=== PATIENT | male | born 1960 | race Hispanic/Latino ===

== ENCOUNTER 2017-06-04 11:18 | Inpatient (IN) | payer OTHER ==
[~2017-06-04] VITALS: Ht 180.3 cm; Wt 117.5 kg
[2017-06-04] MEDS ORDERED: SODIUM CHLORIDE 0.9% 1000ML 1,000 ML IV ONE (11:45)
[2017-06-04] MEDS ORDERED: ONDANSETRON HCL INJ 2 MG/ML VIAL IV PRN (12:30)
[2017-06-04] MEDS ORDERED: MORPHINE SULFATE 2 MG/ML SYR IV PRN (12:30)
[2017-06-04] MEDS ORDERED: CEFTRIAXONE SOD 1 GM VIAL IV SCH (12:30)
[2017-06-04] MEDS ORDERED: ONDANSETRON HCL INJ 2 MG/ML VIAL IV STA (12:31)
[2017-06-04] MEDS ORDERED: MORPHINE SULFATE 4 MG/ML SYR IV STA (12:31)
[2017-06-04 13:38] LABS: BASOPHILS # (AUTO) 0.1 (0.0-0.1); BASOPHILS % 0.4 % (0.0-1.0); EOSINOPHILS % 0.1 % (0.0-6.0); HEMATOCRIT 45.7 % (38.2-49.6); HEMOGLOBIN 15.1 g/dL (14.0-18.0); LYMPHOCYTES % 6.3 % (18.0-39.1); MEAN CORPUSCULAR HEMOGLOBIN 27.6 pg (28-32); MEAN CORPUSCULAR VOLUME 83.5 fL (81-99); MONOCYTES # (AUTO) 2.7 (0.2-0.8); MONOCYTES % 8.9 % (4.4-11.3); NEUTROPHILS # (AUTO) 25.8 (2.1-6.9); NEUTROPHILS % 83.5 % (38.7-80.0); PLATELET COUNT 335 x10e3/uL (140-360); RED BLOOD COUNT 5.47 x10e6/uL (4.3-5.7); RED CELL DISTRIBUTION WIDTH 14.6 % (11.7-14.4)
[2017-06-04 13:49] LABS: INR 1.3; PARTIAL THROMBOPLASTIN TIME 28.6 seconds (23.8-35.5); PROTHROMBIN TIME 15.2 seconds (11.9-14.5)
[2017-06-04 13:56] LABS: ALBUMIN/GLOBULIN RATIO 0.6 (0.8-2.0); ANION GAP 14.4 mmol/L (8-16); CALCIUM 9.3 mg/dL (8.4-10.2); CREATININE, SERUM 1.24 mg/dL (0.72-1.25); POTASSIUM 3.4 mmol/L (3.5-5.1)
[2017-06-04 14:03] LABS: CREATINE KINASE MB 1.8 ng/mL (0-5.0)
[2017-06-04] MEDS ORDERED: SODIUM CHLORIDE 0.9% 1000ML 1,000 ML IV STA (14:11)
--- NOTE | 2017-06-04 14:19 | Diagnostic Imaging Report ---
PROCEDURE:KNEE LEFT THREE VIEWS TECHNIQUE:AP, lateral and oblique views left knee INDICATION:Left knee pain; status infection COMPARISON:None. FINDINGS: The left knee and image regional skeleton are intact and in anatomic alignment. No erosion or periosteal reaction. No effusion. Imaged regional soft tissues are grossly unremarkable. No foreign bodies. CONCLUSION: No acute abnormality. Dictated by: Hung Franks M.D. on 06/04/2017 at 14:20 Electronically approved by: Hung Franks M.D. on 06/04/2017 at 14:20
--- NOTE | 2017-06-04 14:20 | Diagnostic Imaging Report ---
PROCEDURE:CHEST SINGLE (PORTABLE) TECHNIQUE:AP view chest INDICATION:Infection COMPARISON:None. FINDINGS: Lungs are clear and symmetrically inflated. No pleural effusions. Normal heart size, mediastinal contour, and pulmonary vasculature for technique. Intact skeleton. CONCLUSION: No acute abnormality. Dictated by: Hung Franks M.D. on 06/04/2017 at 14:21 Electronically approved by: Hung Franks M.D. on 06/04/2017 at 14:21
[2017-06-04] MEDS ORDERED: ACETAMINOPHEN 1000 MG/100 ML IV STA (14:40)
[2017-06-04] MEDS ORDERED: ASPIRIN 81 MG CHEW TAB PO ONE (14:45)
[2017-06-04] MEDS ORDERED: SODIUM CHLORIDE 0.9% 500ML 500 ML ONE (14:56)
[2017-06-04] MEDS ORDERED: ACETAMINOPHEN 1000 MG/100 ML 100 ML IV ONE (14:58)
--- OUTSIDE RECORDS SUMMARY | 2017-06-04 15:07 | XMS REPORT ---
Author Author [facility] Address Unknown Phone Unavailable Care Team Providers Care Canary Breeder Name Role Phone ALBIN PAZ Unavailable Unavailable Problems This patient has no known problems. Allergies, Adverse Reactions, Alerts This patient has no known allergies or adverse reactions. Medications This patient has no known medications. Results Test Description Test Time Test Comments Text Results Atomic Results Result Comments KNEE LEFT THREE VIEWS [place] [address] Patient Name: STARR WAGNER MR #: [id number] : 1960 Age/Sex: 56/M Req #: [id number] Adm Physician: Ordered by: PINA ZUNIGA MANUFACTURING MECHANIC Report #: [id number] Location: ER Room/Bed: Procedure: [id number] DX/KNEE LEFT THREE VIEWS Exam Date: Exam Time: REPORT STATUS: Signed PROCEDURE: KNEE LEFT THREE VIEWS TECHNIQUE: AP, lateral and oblique views left knee INDICATION: Left knee pain; status infection COMPARISON: None. FINDINGS: The left knee and image regional skeleton are intact and in anatomic alignment. No erosion or periosteal reaction. No effusion. Imaged regional soft tissues are grossly unremarkable. No foreign bodies. CONCLUSION: No acute abnormality. Dictated by: Birdie Franks M.D. on 06/04/2017 at 14:20 Electronically approved by: Birdie Franks M.D. on 2017 at 14:20 Dictated By: BIRDIE FRANKS MD 19 Transcribed By: SUSIE on 1419 COPY TO: PINA ZUNIGA NP CHEST SINGLE (PORTABLE) [place] [address] Patient Name: STARR WAGNER MR #: [id number] : 1960 Age/Sex: 56/M Req #: [id number] Adm Physician: Ordered by: PINA ZUNIGA NP Report #: [id number] Location: ER Room/Bed: Procedure: [id number] DX/CHEST SINGLE (PORTABLE) Exam Date: Exam Time: REPORT STATUS: Signed PROCEDURE: CHEST SINGLE ( PORTABLE) TECHNIQUE: AP view chest INDICATION: Infection COMPARISON: None. FINDINGS: Lungs are clear and symmetrically inflated. No pleural effusions. Normal heart size, mediastinal contour, and pulmonary vasculature for technique. Intact skeleton. CONCLUSION: No acute abnormality. Dictated by: Birdie Franks M.D. on 06/04/2017 at 14:21 Electronically approved by: Birdie Franks M.D. on 2017 at 14:21 Dictated By: BIRDIE FRANKS MD 20 Transcribed By: SUSIE on 142 COPY TO: PINA ZUNIGA NP
[2017-06-04] MEDS: SODIUM CHLORIDE 0.9% 1000ML 1,000 ML IV SCH (15:18)
[2017-06-04] MEDS: VANCOMYCIN 1GM/NS 250 ML 250 ML IV SCH ×2 (15:18→15:19)
[2017-06-04 16:46] LABS: CLARITY,URINE SL CLOUDY (CLEAR); COLOR,URINE STRAW (YELLOW)
[2017-06-04 16:47] LABS: BILIRUBIN,URINE 1+ (NEGATIVE); KETONES,URINE NEGATIVE (NEGATIVE); LEUKOCYTE ESTERASE ,URINE NEGATIVE (NEGATIVE); NITRITE,URINE NEGATIVE (NEGATIVE); PROTEIN,URINE DIPSTICK TRACE (NEGATIVE); URINE UROBILINOGEN 8 mg/dL (0.2 - 1)
[2017-06-04 16:52] LABS: BACTERIA,URINE RARE /HPF; EPITHELIAL CELLS,URINE FEW /LPF
[2017-06-04 16:58] LABS: LYMPHOCYTES % (MANUAL) 8 % (19-48); MONOCYTES % (MANUAL) 8 % (3.4-9.0); NEUTROPHILS % (MANUAL) 82 % (40-74); PLATELET ESTIMATE ADEQUATE; PLATELET MORPHOLOGY COMMENT NORMAL; RBC MORPHOLOGY COMMENT NORMAL
--- NOTE | 2017-06-04 17:06 | Diagnostic Imaging Report ---
PROCEDURE: A single AP view of the chest. COMPARISON: Patients [facility], , CHEST SINGLE (PORTABLE), 06/04/2017, 14:36. INDICATIONS: PICC PLACEMENT FINDINGS: Lines/tubes: Left upper extremity PICC with distal tip projected on the mid SVC. Lungs: Left basilar linear atelectasis versus scarring. There is no evidence of pneumonia or pulmonary edema. Pleura: There is no pleural effusion or pneumothorax. Heart and mediastinum: The heart and the mediastinum are unremarkable. Bones: No acute bony abnormality. IMPRESSION: 1. Left upper extremity PICC with distal tip projected on the mid SVC. Stephany Canchola M.D. Dictated by: Stephany Canchola M.D. on 06/04/2017 at 17:07 Electronically approved by: Stephany Canchola M.D. on 06/04/2017 at 17:07
--- NOTE | 2017-06-04 18:34 | Diagnostic Imaging Report ---
EXAM: CT Chest WITH contrast 06/04/2017 2:51 PM INDICATION: Pulmonary embolism. Red swollen legs. COMPARISON: None. TECHNIQUE: Chest was scanned utilizing a multidetector helical scanner from the lung apex through the level of the adrenal glands without administration of IV contrast. Coronal and sagittal reformations were obtained. Routine protocol was performed. IV CONTRAST: 100 mL of Isovue-370. RADIATION DOSE: Total DLP: 671.19mGy*cm Estimated effective dose: (DLP x 0.014 x size factor) mSv COMPLICATIONS: None FINDINGS: LINES/ TUBES: Left upper extremity PICC with distal tip in the high SVC. LUNGS AND AIRWAYS: There are small filling defects within bilateral segmental pulmonary veins, however, significantly defect is noted in pulmonary arteries to the resolved segmental level bilaterally. Bibasilar subsegmental atelectasis. Lingular subsegmental atelectasis. Airways are normal. PLEURA: No pleural effusion or pneumothorax. HEART AND MEDIASTINUM: The thyroid gland is normal. Small lymph nodes scattered throughout the mediastinum, the largest lateral to the aortic arch measuring 8.7 mm in short axis on image 32 series 2. No hilar or axillary lymphadenopathy. The heart is normal in size.. There is no pericardial effusion. Mild mediastinal lipomatosis. UPPER ABDOMEN: Limited non-contrast views of the upper abdomen show diffuse low attenuation of the hepatic parenchyma consistent with steatosis. The adrenal glands are normal. BONES: Spondylosis of the mid thoracic spine. No acute osseous abnormality. SOFT TISSUES: Unremarkable. IMPRESSION: No evidence of pulmonary arterial emboli to the resolved segmental level. Signed by: Dr. Stephany Canchola M.D. on 06/04/2017 6:30 PM
[2017-06-04 18:43] LABS: CHOL/HDL RATIO 5.6 (3.9-4.7)
[2017-06-04] MEDS ORDERED: LOSARTAN POTASS25 MG PO (18:49)
[2017-06-04] MEDS: ENOXAPARIN SODIUM INJ 100 MG/ML SYR SC SCH (18:50)
[2017-06-04 19:08] LABS: CREATINE KINASE MB 0.9 ng/mL (0-5.0)
--- NOTE | 2017-06-04 19:22 | Consultation ---
DATE OF CONSULTATION: June 04, 2017 CARDIOLOGY CONSULTATION REQUESTING PHYSICIAN: Dr. Prashanth Mcclain. REASON FOR CONSULTATION: Elevated troponin. HISTORY OF PRESENT ILLNESS: This is a 56-year-old man with history of hypertension, who presents with complaints of left leg pain and swelling. The patient reports he had been feeling weak secondary to the flu. On Sunday he bumped his left leg against something and noted increasing redness and swelling. Since that time, he saw his primary care provider, Dr. Moseley, today and was sent to the ER for further care. He denies any chest pain, orthopnea, PND, palpitations, lightheadedness or syncope. However, he does endorse dyspnea on exertion for 4 days. REVIEW OF SYSTEMS: Negative except as per HPI. PAST MEDICAL HISTORY: Hypertension. PAST SURGICAL HISTORY: None. ALLERGIES: NO KNOWN DRUG ALLERGIES. MEDICATIONS: Please see EMR. SOCIAL HISTORY: Denies tobacco, alcohol or drugs. He works as an programmer engineering and scientific. FAMILY HISTORY: Noncontributory. PHYSICAL EXAMINATION VITAL SIGNS: Temperature 98.9 degrees, pulse of 95, respiratory rate 16, blood pressure 118/73, oxygen saturation 100% on 2 liters nasal cannula. GENERAL: A well-developed, well-nourished, obese man in no acute distress. HEENT: Normocephalic, atraumatic. Pupils equal, no scleral icterus. NECK: Supple. No thyromegaly or cervical lymphadenopathy, no carotid bruits. LUNGS: Clear to auscultation bilaterally. No wheezes or crackles. CARDIOVASCULAR: Normal rate, regular rhythm. No murmur. Normal S1 and S2. ABDOMEN: Soft, nontender. EXTREMITIES: Right lower extremity no edema. Left lower extremity markedly erythematous and swollen up to the lower thigh. NEURO: Nonfocal exam. LABS: WBC 30.87, hemoglobin 15.1, platelets 335. Sodium 136, potassium 3.4, chloride 99, CO2 26, BUN 17, creatinine 1.24. Lactic acid 26.9. Troponin 1.246. INR 1.3. CHEST X-RAY: No acute abnormality. EKG: Sinus tachycardia, otherwise normal EKG. IMPRESSION 1. Elevated troponin. 2. Left lower extremity cellulitis. 3. Dyspnea on exertion. 4. Hypertension. RECOMMENDATIONS: Trend cardiac enzymes. Echocardiogram has been done as well as venous Doppler. We will review the images. IV antibiotics per primary service. Blood cultures are pending. D-dimer elevated to 1.67. CT of the chest was performed with pending read as well. Start aspirin. Check fasting lipid panel. Lovenox 1 mg/kg subcutaneous q.12 h. Thank you for this consult. We will continue to follow. Job#: [id number] EV MTDPoncho
[2017-06-04] MEDS ORDERED: IOPAMIDOL 370 MG/ML 200 ML INFUS..BTL INJ ONE (22:33)
[2017-06-04] MEDS ORDERED: SODIUM CHLORIDE 0.9% 50ML 50 ML ONE (22:33)
[2017-06-04 22:45] VITALS: BP 131/85
[2017-06-04 23:04] LABS: CREATINE KINASE MB 0.5 ng/mL (0-5.0)
[2017-06-04 23:47] VITALS: BP 131/85
[2017-06-05] MEDS: SODIUM CHLORIDE 0.9% 1000ML 1,000 ML IV SCH ×2 (00:24→09:32)
[2017-06-05] MEDS: CEFTRIAXONE SOD 1 GM VIAL IV SCH ×2 (02:37→14:45)
[2017-06-05] MEDS: VANCOMYCIN 1GM/NS 250 ML 250 ML IV SCH ×2 (03:33→15:30)
[2017-06-05 04:00] VITALS: BP 113/61
[2017-06-05] MEDS: ENOXAPARIN SODIUM INJ 100 MG/ML SYR SC SCH ×2 (06:20→18:16)
[2017-06-05 06:21] LABS: BASOPHILS # (AUTO) 0.1 (0.0-0.1); BASOPHILS % 0.4 % (0.0-1.0); EOSINOPHILS % 0.1 % (0.0-6.0); HEMATOCRIT 36.5 % (38.2-49.6); HEMOGLOBIN 12.5 g/dL (14.0-18.0); LYMPHOCYTES # (AUTO) 1.7 (1.0-3.2); MEAN CORPUSCULAR HEMOGLOBIN 28.3 pg (28-32); MEAN CORPUSCULAR HGB CONC 34.2 g/dL (31-35); MEAN CORPUSCULAR VOLUME 82.6 fL (81-99); MONOCYTES # (AUTO) 2.3 (0.2-0.8); MONOCYTES % 8.2 % (4.4-11.3); NEUTROPHILS # (AUTO) 23.9 (2.1-6.9); NEUTROPHILS % 84.3 % (38.7-80.0); PLATELET COUNT 280 x10e3/uL (140-360); RED BLOOD COUNT 4.42 x10e6/uL (4.3-5.7); RED CELL DISTRIBUTION WIDTH 14.5 % (11.7-14.4)
[2017-06-05 06:51] LABS: ANION GAP 10.5 mmol/L (8-16); BLOOD UREA NITROGEN 12 mg/dL (7-26); BUN/CREATININE RATIO 13 (6-25); CALCIUM 8.3 mg/dL (8.4-10.2); CARBON DIOXIDE 24 mmol/L (22-29); CHLORIDE 104 mmol/L (98-107); CREATININE, SERUM 0.94 mg/dL (0.72-1.25); EST GLOMERULAR FILTRATION RATE > 60 ML/MIN (60-); GLUCOSE 102 mg/dL (74-118); POTASSIUM 3.5 mmol/L (3.5-5.1); SODIUM 135 mmol/L (136-145)
[2017-06-05 08:00] VITALS: BP 103/64
[2017-06-05] MEDS: ACETAMINOPHEN 325 MG TAB PO PRN (08:00)
[2017-06-05 08:27] LABS: BAND NEUTROPHILS % (MANUAL) 3 %; EOSINOPHILS % (MANUAL) 1 % (0-7); LYMPHOCYTES % (MANUAL) 5 % (19-48); MONOCYTES % (MANUAL) 7 % (3.4-9.0); NEUTROPHILS % (MANUAL) 77 % (40-74)
[2017-06-05 08:28] LABS: ANISOCYTOSIS SLIGHT; HYPOCHROMASIA SLIGHT; PLATELET ESTIMATE ADEQUATE; PLATELET MORPHOLOGY COMMENT FEW LARGE; RBC MORPHOLOGY COMMENT NORMAL
[2017-06-05] MEDS ORDERED: LOSARTAN POTASSIUM 25 MG TAB PO SCH (09:00)
[2017-06-05] MEDS: ASPIRIN 81 MG ENTERIC COATED PO SCH (09:00)
[2017-06-05] MEDS ORDERED: PIPER-TAZ 3.375 GM 50 ML IV SCH (09:15)
--- NOTE | 2017-06-05 10:02 | History and Physical ---
PCP: Dr. Ramirez Moseley ELECTRICAL DESIGNER DRAFTER: Dr. Israel CHIEF COMPLAINT: Left lower extremity cellulitis from the left foot to the knee area. HISTORY: A 56-year-old male with chronic skin disease, psoriasis on the left foot interior surface. The patient recently had a upper respiratory infection. He felt better, but then on Sunday he developed some left lower extremity redness and is traveling all the way up to the knee area. The patient with left lower extremity pain. The patient subsequently admitted through the emergency room. He had a fever of 101. The patient has significant pain and left lower extremity redness of the knee area. The patient is on antibiotic, vancomycin. He is also on Rocephin as well. The patient is otherwise stable at this time. PAST MEDICAL HISTORY: Hypertension. PAST SURGICAL HISTORY: Noncontributory. SOCIAL HISTORY: The patient does not smoke or use alcohol. No regular drugs. ALLERGIES: NO KNOWN ALLERGIES. HOME MEDICATIONS: Losartan. REVIEW OF SYSTEMS: Left lower extremity pain, increasing redness and swelling. PHYSICAL EXAMINATION VITAL SIGNS: Temperature is 101, blood pressure 103/64, pulse rate is 98, respirations 18. GENERAL: The patient is not in acute distress. He is awake. HEENT: Normocephalic, atraumatic and anicteric. NECK: Supple grossly. PULMONARY: Diminished breath sounds without any wheezing or rales. CARDIOVASCULAR: S1 and S2. Slight tachycardia. ABDOMEN: Soft. Positive bowel sounds. Grossly nontender. No distention. EXTREMITIES: Positive for left lower extremity cellulitis. NEUROLOGICAL: There is no focal deficit. LABORATORY: WBC is 30.8, hemoglobin 15, hematocrit 35, and platelets are 335,000. Chemistry: Sodium is 135, potassium 3.5, chloride 104, bicarb 24, BUN 12, creatinine 0.9, and glucose is 102. Troponin I is 0.9. IMPRESSION 1. Sepsis with early shock: The patient has fever, leukocytosis and low blood pressure. 2. Left lower extremity cellulitis and infection from the lower extremity foot to the knee area. 3. Fever as mentioned. 4. Possible troponin I could be secondary to distress. PLAN: IV fluid to help blood pressure. Antibiotics. Consultation with Dr. Israel and Dr. Mariano Machado. Continue with aggressive antibiotic treatment. Will discontinue the Rocephin and add on Zosyn. The patient will be monitored on a close basis. Job#: [id number] BENJAMIN
[2017-06-05 11:52] VITALS: BP 109/58
[2017-06-05 16:00] VITALS: BP 115/66
--- NOTE | 2017-06-05 16:28 | Consultation ---
DATE OF CONSULTATION: INFECTIOUS DISEASE CONSULTATION REASON FOR CONSULTATION: Cellulitis of the leg. HISTORY OF PRESENT ILLNESS: This is a 56-year-old male who has history of hypertension, history of psoriasis/eczema. The patient comes in with redness and swelling of his left leg. The patient apparently had been sick for a week. He took some oral antibiotic. Originally it was felt he had the flu, but then a few days later he started to have redness and swelling in his leg. He was given oral antibiotic without any improvement. The patient, because of the redness and swelling in his leg, was sent here, where he was admitted. PAST MEDICAL HISTORY: Hypertension, obesity, psoriasis/eczema. PAST SURGICAL HISTORY: Denies. ALLERGIES: NKA. SOCIAL HISTORY: He denies smoking, drug abuse, alcohol abuse. FAMILY HISTORY: Otherwise hypertension. REVIEW OF SYSTEMS GENERALLY: He is just feeling fair. HEENT: There is no headache, visual changes, hearing changes. GI: There is no nausea, no vomiting, no diarrhea. SKIN: He has a severe rash with itching. JOINTS: Negative. PSYCHIATRIC: Negative. NEUROLOGIC: Negative. MUSCULOSKELETAL: Negative otherwise. On the review of systems, besides the pain in the leg and the redness and swelling, he denies any. HOME MEDICATION: Losartan. His laboratory data reviewed. On admission his white count is 30,000, hemoglobin 15.1, hematocrit 45, his platelet is 335. His sodium 135, potassium 3.5, creatinine of 0.94. Patient was started on ceftriaxone and vancomycin. Patient had a CT of the chest, showed no evidence of acute disease. PHYSICAL EXAMINATION GENERAL: He is currently alert, oriented, does not seem to be in acute distress. VITAL SIGNS: Stable. Currently afebrile. HEENT: He does not appear icteric. NECK: Supple. CHEST: Clear. HEART: S1 and S2. No S3 or S4, no murmur. ABDOMEN: Soft. EXTREMITIES: The leg: There is erythema, there is edema, but there is no bullous formation. There is no black discoloration. IMPRESSION: Cellulitis of the leg, severe. I am concerned about this high white count. It is certainly concerning. Will keep him on current choice of antibiotic. Recheck CBC, recheck chem panel. Blood culture is negative so far. Will reassess in the morning. Will follow with you. Job#: [id number] EV
--- NOTE | 2017-06-05 19:20 | Progress Note ---
DATE: June 05, 2017 CARDIOLOGY PROGRESS NOTE SUBJECTIVE: The patient denies chest pain or shortness of breath. OBJECTIVE VITAL SIGNS: Temperature 96.7 degrees, pulse 95, respiratory rate 20, blood pressure 109/58, oxygen saturation 100% on 3 L nasal cannula. GENERAL: Obese gentleman, in no acute distress. LUNGS: Clear to auscultation bilaterally. No wheezes or crackles. CARDIOVASCULAR: Normal rate, regular rhythm. No murmur. Normal S1, S2. ABDOMEN: Soft, nontender. EXTREMITIES: Right lower extremity without edema. Left lower extremity with swelling and erythema although improved from prior. CARDIAC MEDICATIONS 1. Aspirin 81 mg p.o. daily. 2. Enoxaparin 100 mg subcutaneous q.12 h. LABS: WBC 28.3, hemoglobin 12.5, hematocrit 36.5, platelets 280,000. Sodium 135, potassium 3.5, chloride 104, CO2 24, BUN 12, creatinine 0.94, troponin 0.778. Triglycerides 181, cholesterol 125, LDL 83, HDL 26. IMPRESSION 1. Elevated troponin. 2. Left lower extremity cellulitis. 3. Dyspnea on exertion. 4. Hypertension. RECOMMENDATIONS: Cardiac enzymes are down trending. Continue aspirin and Lovenox. There was no evidence of vein thrombosis in the visualized vessels on left lower extremity venous Doppler. Echocardiogram demonstrated normal systolic function. Patient will need ischemic evaluation once his acute illness resolves. IV antibiotics per infectious disease. Blood cultures are pending. CT chest without evidence of PE. Thank you for this consult. We will continue to follow. Job#: [id number] Delivered
[2017-06-05 21:43] VITALS: BP 111/73
[2017-06-06 01:36] VITALS: BP 96/63
[2017-06-06] MEDS: SODIUM CHLORIDE 0.9% 1000ML 1,000 ML IV SCH ×3 (02:13→18:30)
[2017-06-06] MEDS: CEFTRIAXONE SOD 1 GM VIAL IV SCH ×2 (02:13→14:59)
[2017-06-06] MEDS: VANCOMYCIN 1GM/NS 250 ML 250 ML IV SCH (03:26)
[2017-06-06 06:02] VITALS: BP 124/83
[2017-06-06] MEDS: ENOXAPARIN SODIUM INJ 100 MG/ML SYR SC SCH ×2 (06:17→18:30)
[2017-06-06 06:46] LABS: BASOPHILS # (AUTO) 0.1 (0.0-0.1); BASOPHILS % 0.4 % (0.0-1.0); EOSINOPHILS # (AUTO) 0.2 (0.0-0.4); EOSINOPHILS % 0.6 % (0.0-6.0); HEMATOCRIT 37.2 % (38.2-49.6); HEMOGLOBIN 12.7 g/dL (14.0-18.0); LYMPHOCYTES # (AUTO) 2.1 (1.0-3.2); LYMPHOCYTES % 7.9 % (18.0-39.1); MEAN CORPUSCULAR HEMOGLOBIN 28.1 pg (28-32); MEAN CORPUSCULAR HGB CONC 34.1 g/dL (31-35); MEAN CORPUSCULAR VOLUME 82.3 fL (81-99); MONOCYTES % 7.7 % (4.4-11.3); NEUTROPHILS # (AUTO) 21.3 (2.1-6.9); NEUTROPHILS % 80.5 % (38.7-80.0); PLATELET COUNT 347 x10e3/uL (140-360); RED BLOOD COUNT 4.52 x10e6/uL (4.3-5.7); RED CELL DISTRIBUTION WIDTH 14.4 % (11.7-14.4)
[2017-06-06 07:09] LABS: ANION GAP 11.4 mmol/L (8-16); BLOOD UREA NITROGEN 12 mg/dL (7-26); BUN/CREATININE RATIO 14 (6-25); CALCIUM 8.3 mg/dL (8.4-10.2); CARBON DIOXIDE 22 mmol/L (22-29); CHLORIDE 105 mmol/L (98-107); CREATININE, SERUM 0.83 mg/dL (0.72-1.25); EST GLOMERULAR FILTRATION RATE > 60 ML/MIN (60-); GLUCOSE 94 mg/dL (74-118); POTASSIUM 3.4 mmol/L (3.5-5.1); SODIUM 135 mmol/L (136-145)
[2017-06-06 08:00] VITALS: BP 128/67
[2017-06-06] MEDS: ASPIRIN 81 MG ENTERIC COATED PO SCH (08:00)
[2017-06-06 08:54] LABS: ANISOCYTOSIS SLIGHT; HYPOCHROMASIA SLIGHT; LYMPHOCYTES % (MANUAL) 8 % (19-48); METAMYELOCYTES % (MANUAL) 1 % (0-0); MONOCYTES % (MANUAL) 6 % (3.4-9.0); NEUTROPHILS % (MANUAL) 84 % (40-74); PROMYELOCYTES % (MANUAL) 1 % (0-0); RBC MORPHOLOGY COMMENT NORMAL
[2017-06-06 08:55] LABS: PLATELET ESTIMATE ADEQUATE; PLATELET MORPHOLOGY COMMENT NORMAL
[2017-06-06] MEDS ORDERED: VANCOMYCIN HCL 1.25 GM in SODIUM CHLORIDE 0.9% 250ML 250 ML IV SCH (11:15)
[2017-06-06] MEDS: VANCOMYCIN HCL 1.25 GM in SODIUM CHLORIDE 0.9% 250ML 300 ML IV SCH ×2 (12:13→23:30)
[2017-06-06] MEDS ORDERED: VANCOMYCIN 1GM/NS 250 ML 250 ML IV SCH (13:00)
[2017-06-06] MEDS: CLINDAMYCIN 600MG/D5W 50ML 50 ML IV SCH ×2 (14:59→22:00)
[2017-06-06] MEDS ORDERED: CELECOXIB 100 MG CAP PO PRN (15:00)
[2017-06-06] MEDS ORDERED: KETOROLAC TROMETHAMINE 30 MG/ML VIAL IV PRN (15:00)
[2017-06-06 16:00] VITALS: BP 125/58
--- NOTE | 2017-06-06 18:05 | Progress Note ---
DATE: June 06, 2017 CARDIOLOGY PROGRESS NOTE SUBJECTIVE: Patient denies chest pain or shortness of breath. His main complaint is of back pain today. OBJECTIVE VITAL SIGNS: Temperature 98.6 degrees, pulse 88, respiratory rate 19, blood pressure 126/67, oxygen saturation 98% on room air. GENERAL: Obese gentleman in no acute distress. LUNGS: Clear to auscultation bilaterally. No wheezes or crackles. CARDIOVASCULAR: Normal rate, regular rhythm. No murmur. Normal S1 and S2. ABDOMEN: Soft, nontender. EXTREMITIES: Right lower extremity without edema. Left lower extremity is markedly swollen with worsened erythema. CARDIAC MEDICATIONS 1. Aspirin 81 mg p.o. daily. 2. Lovenox 100 mg subcutaneous q.12 h. LABS: WBC 26.45, hemoglobin 12.7, hematocrit 37.2, platelets 347. Sodium 135, potassium 3.4, chloride 105, CO2 22, BUN 12, creatinine 0.83. Blood cultures no growth at 48 hours. TELEMETRY: Normal sinus rhythm. IMPRESSION 1. Elevated troponin. 2. Left lower extremity cellulitis. 3. Dyspnea on exertion. 4. Hypertension. RECOMMENDATIONS: Continue current cardiac medications. IV antibiotics per Infectious Disease. Blood cultures have not demonstrated growth to date. Patient's elevated troponin is not consistent with [id number] myocardial infarction, and echocardiogram demonstrated normal LV systolic function. However, he will need ischemic evaluation once his acute illness resolves. Continue telemetry. Thank you for this consult. We will continue to follow. Job#: [id number] ENID
[2017-06-06 20:00] VITALS: BP 120/81
[2017-06-07] VITALS: BP 121/76
[2017-06-07] MEDS: VANCOMYCIN HCL 1.25 GM in SODIUM CHLORIDE 0.9% 250ML 300 ML IV SCH ×3 (01:05→23:45)
[2017-06-07] MEDS: CEFTRIAXONE SOD 1 GM VIAL IV SCH ×2 (02:55→14:45)
[2017-06-07 04:00] VITALS: BP 129/70
[2017-06-07] MEDS: SODIUM CHLORIDE 0.9% 1000ML 1,000 ML IV SCH ×3 (04:33→22:21)
[2017-06-07] MEDS: CLINDAMYCIN 600MG/D5W 50ML 50 ML IV SCH ×4 (05:58→22:21)
[2017-06-07] MEDS: ENOXAPARIN SODIUM INJ 100 MG/ML SYR SC SCH (06:06)
[2017-06-07 08:00] VITALS: BP 140/80
[2017-06-07] MEDS: ASPIRIN 81 MG ENTERIC COATED PO SCH (08:30)
[2017-06-07 12:00] VITALS: BP 134/80
--- NOTE | 2017-06-07 12:18 | Progress Note ---
DATE: June 07, 2017 CARDIOLOGY PROGRESS NOTE SUBJECTIVE: Patient denies chest pain or shortness of breath. OBJECTIVE VITAL SIGNS: Temperature 98.2 degrees, pulse 81, respiratory rate 18, blood pressure 140/80, oxygen saturation 95% on room air. GENERAL: Awake, alert, in no acute distress. LUNGS: Clear to auscultation bilaterally. No wheezes or crackles. CARDIOVASCULAR: Normal rate, regular rhythm. No murmur. Normal S1 and S2. ABDOMEN: Soft, nontender. EXTREMITIES: Left lower extremity remains swollen with erythema, although this is better. There appears to be a fluid collection forming on the left anterior aspect. CARDIAC MEDICATIONS 1. Aspirin 81 mg p.o. daily. 2. Enoxaparin 100 mg subcutaneous q.12 h. LABS: Pending. TELEMETRY: Normal sinus rhythm. IMPRESSION 1. Elevated troponin. 2. Left lower extremity cellulitis. 3. Dyspnea on exertion. 4. Hypertension. RECOMMENDATIONS: Continue current cardiac medications. IV antibiotics per infectious disease. Blood cultures are without growth to date. Patient's elevated troponin is not consistent with [id number] myocardial infarction, and echocardiogram demonstrated normal LV systolic function. He will need ischemic evaluation once his acute illness resolves. Continue telemetry. Thank you for this consult. We will continue to follow. Job#: [id number] YNES
[2017-06-07 15:06] LABS: ANION GAP 12.4 mmol/L (8-16); BLOOD UREA NITROGEN 14 mg/dL (7-26); BUN/CREATININE RATIO 17 (6-25); CALCIUM 8.3 mg/dL (8.4-10.2); CARBON DIOXIDE 23 mmol/L (22-29); CHLORIDE 105 mmol/L (98-107); CREATININE, SERUM 0.81 mg/dL (0.72-1.25); EST GLOMERULAR FILTRATION RATE > 60 ML/MIN (60-); GLUCOSE 119 mg/dL (74-118); POTASSIUM 3.4 mmol/L (3.5-5.1); SODIUM 137 mmol/L (136-145)
[2017-06-07 16:00] VITALS: BP 128/76
[2017-06-07] MEDS: ACETAMINOPHEN 325 MG TAB PO PRN (17:52)
[2017-06-07] MEDS ORDERED: BISACODYL 10 MG SUPP PR PRN (21:45)
[2017-06-07] MEDS ORDERED: MAGNESIUM HYDROXIDE 30 ML UDC PO PRN (21:45)
[2017-06-07] MEDS ORDERED: SENNA-S TABLET PO ONE (22:00)
[2017-06-08] MEDS: CEFTRIAXONE SOD 1 GM VIAL IV SCH ×2 (02:28→14:45)
[2017-06-08] MEDS: ENOXAPARIN SODIUM INJ 100 MG/ML SYR SC SCH (05:59)
[2017-06-08] MEDS: CLINDAMYCIN 600MG/D5W 50ML 50 ML IV SCH ×3 (05:59→21:43)
[2017-06-08 08:00] VITALS: BP 128/76
[2017-06-08 08:21] VITALS: BP 140/92
[2017-06-08 09:00] VITALS: BP 140/92
[2017-06-08] MEDS: LACTOBACILLUS ACIDOPHILUS CAPSULE PO SCH ×3 (09:00→21:43)
[2017-06-08] MEDS: ASPIRIN 81 MG ENTERIC COATED PO SCH (09:00)
[2017-06-08] MEDS: SENNA-S TABLET PO SCH ×2 (09:00→17:00)
[2017-06-08 10:37] LABS: BASOPHILS # (AUTO) 0.1 (0.0-0.1); BASOPHILS % 0.5 % (0.0-1.0); EOSINOPHILS # (AUTO) 0.4 (0.0-0.4); EOSINOPHILS % 1.9 % (0.0-6.0); HEMATOCRIT 42.4 % (38.2-49.6); HEMOGLOBIN 14.5 g/dL (14.0-18.0); LYMPHOCYTES # (AUTO) 3.1 (1.0-3.2); MEAN CORPUSCULAR HEMOGLOBIN 27.9 pg (28-32); MEAN CORPUSCULAR HGB CONC 34.2 g/dL (31-35); MEAN CORPUSCULAR VOLUME 81.7 fL (81-99); MONOCYTES # (AUTO) 1.5 (0.2-0.8); NEUTROPHILS # (AUTO) 15.7 (2.1-6.9); NEUTROPHILS % 70.7 % (38.7-80.0); PLATELET COUNT 365 x10e3/uL (140-360); RED BLOOD COUNT 5.19 x10e6/uL (4.3-5.7); RED CELL DISTRIBUTION WIDTH 14.1 % (11.7-14.4)
[2017-06-08] MEDS: VANCOMYCIN HCL 1.25 GM in SODIUM CHLORIDE 0.9% 250ML 300 ML IV SCH ×2 (11:30→23:30)
[2017-06-08 11:54] VITALS: BP 136/99
[2017-06-08 11:54] LABS: ANISOCYTOSIS SLIGHT; LYMPHOCYTES % (MANUAL) 12 % (19-48); METAMYELOCYTES % (MANUAL) 1 % (0-0); MONOCYTES % (MANUAL) 9 % (3.4-9.0); MYELOCYTES % (MANUAL) 3 % (0-0); NEUTROPHILS % (MANUAL) 71 % (40-74); PLATELET ESTIMATE ADEQUATE; PLATELET MORPHOLOGY COMMENT NORMAL; RBC MORPHOLOGY COMMENT NORMAL
[2017-06-08 16:29] VITALS: BP 131/87
[2017-06-08] MEDS: ENOXAPARIN SOD INJ 40 MG/0.4 ML SYR SC SCH (17:00)
[2017-06-08 20:17] VITALS: BP 140/89
[2017-06-09] VITALS (8 sets, daily range): BP systolic 137–160; BP diastolic 90–97
--- NOTE | 2017-06-09 00:19 | Progress Note ---
DATE: June 08, 2017 CARDIOLOGY PROGRESS NOTE SUBJECTIVE: Patient denies chest pain or shortness of breath. OBJECTIVE VITAL SIGNS: Temperature 97.1 degrees, pulse 81, respiratory rate 20, blood pressure 136/99, oxygen saturation 97% on room air. GENERAL: Awake, alert, in no acute distress. LUNGS: Clear to auscultation bilaterally. No wheezes or crackles. CARDIOVASCULAR: Normal rate, regular rhythm. No murmur. Normal S1/S2. ABDOMEN: Soft, nontender. EXTREMITIES: Left lower extremity remains swollen with erythema. It is gradually improving. There are fluid collections forming on the anterior aspect of the left lower leg. CARDIAC MEDICATIONS 1. Enoxaparin 40 mg subcutaneous daily. 2. Aspirin 81 mg p.o. daily. LABS: WBC 22.11, hemoglobin 14.5, hematocrit 42.4, platelets 365,000. TELEMETRY: Normal sinus rhythm. IMPRESSIONS 1. Left lower extremity cellulitis with abscess formation. 2. Elevated troponin. 3. Dyspnea on exertion. 4. Hypertension. RECOMMENDATIONS: Continue current cardiac medications. IV antibiotics per infectious disease. Blood cultures are without growth to date. However, patient will likely need I and D of his left leg in the upcoming week due to developing abscess. Patient's troponin was not consistent with myocardial infarction. An echocardiogram demonstrated normal LV systolic function. He will need an ischemic evaluation once his acute illness resolves. Continue monitoring on telemetry. Thank you for this consult. We will continue to follow. Job#: [id number] CQ
[2017-06-09] MEDS: CEFTRIAXONE SOD 1 GM VIAL IV SCH ×2 (02:10→14:45)
[2017-06-09] MEDS: CLINDAMYCIN 600MG/D5W 50ML 50 ML IV SCH ×3 (06:11→22:40)
[2017-06-09] MEDS: ASPIRIN 81 MG ENTERIC COATED PO SCH (09:00)
[2017-06-09] MEDS: LACTOBACILLUS ACIDOPHILUS CAPSULE PO SCH ×3 (09:00→21:11)
[2017-06-09] MEDS: SENNA-S TABLET PO SCH ×2 (09:00→16:39)
[2017-06-09 09:52] LABS: BASOPHILS # (AUTO) 0.2 (0.0-0.1); BASOPHILS % 0.9 % (0.0-1.0); EOSINOPHILS # (AUTO) 0.3 (0.0-0.4); EOSINOPHILS % 1.6 % (0.0-6.0); HEMATOCRIT 40.2 % (38.2-49.6); HEMOGLOBIN 13.7 g/dL (14.0-18.0); LYMPHOCYTES % 10.8 % (18.0-39.1); MEAN CORPUSCULAR HGB CONC 34.1 g/dL (31-35); MONOCYTES # (AUTO) 1.3 (0.2-0.8); MONOCYTES % 6.8 % (4.4-11.3); NEUTROPHILS # (AUTO) 13.8 (2.1-6.9); NEUTROPHILS % 74.2 % (38.7-80.0); PLATELET COUNT 427 x10e3/uL (140-360); RED CELL DISTRIBUTION WIDTH 14.4 % (11.7-14.4)
[2017-06-09 10:09] LABS: ANION GAP 9.7 mmol/L (8-16); BLOOD UREA NITROGEN 12 mg/dL (7-26); BUN/CREATININE RATIO 14 (6-25); CALCIUM 8.3 mg/dL (8.4-10.2); CARBON DIOXIDE 23 mmol/L (22-29); CHLORIDE 104 mmol/L (98-107); CREATININE, SERUM 0.87 mg/dL (0.72-1.25); EST GLOMERULAR FILTRATION RATE > 60 ML/MIN (60-); GLUCOSE 124 mg/dL (74-118); POTASSIUM 3.7 mmol/L (3.5-5.1); SODIUM 133 mmol/L (136-145)
[2017-06-09] MEDS: VANCOMYCIN HCL 1.25 GM in SODIUM CHLORIDE 0.9% 250ML 300 ML IV SCH (11:30)
[2017-06-09 11:49] LABS: BAND NEUTROPHILS % (MANUAL) 1 %; LYMPHOCYTES % (MANUAL) 10 % (19-48); METAMYELOCYTES % (MANUAL) 2 % (0-0); MONOCYTES % (MANUAL) 7 % (3.4-9.0); NEUTROPHILS % (MANUAL) 80 % (40-74); PLATELET ESTIMATE ADEQUATE; PLATELET MORPHOLOGY COMMENT NORMAL; RBC MORPHOLOGY COMMENT NORMAL
--- NOTE | 2017-06-09 14:15 | Progress Note ---
DATE: CARDIOLOGY PROGRESS NOTE SUBJECTIVE: The patient is without any complaints. He states that his left leg swelling and pain have improved. Denies any chest pain or shortness of breath. OBJECTIVE VITAL SIGNS: Temperature 96.9, pulse 82, respiratory rate 18, blood pressure 144/97, oxygen saturation 97% on 2 L nasal cannula. CARDIOVASCULAR MEDICATIONS 1. Lovenox 40 mg subcutaneous daily. 2. Aspirin 81 mg p.o. daily. LABS: WBC 18.63, hemoglobin 13.7, hematocrit 40.2, platelets 427. Sodium 133, potassium 3.7, BUN 12, creatinine 0.87, glucose 124, calcium 8.3. TELEMETRY: Sinus rhythm. GENERAL: Alert and oriented times 3, resting comfortably in bed. Does not appear to be in any acute distress. LUNGS: Clear to auscultation throughout. No wheezing, rhonchi or crackles. CARDIOVASCULAR: Regular rate and rhythm. Normal S1 and S2. No murmur. No gallop. ABDOMEN: Rounded, soft and nontender. LOWER EXTREMITIES: The left lower extremity remains with a little bit of swelling with erythema. However, it is improving. Fluid collection forming on the anterior aspect of the lower leg. IMPRESSION 1. Left lower extremity cellulitis with abscess formation. 2. Elevated troponins. 3. Dyspnea on exertion. 4. Hypertension. RECOMMENDATIONS: Continue the above list of cardiac medications. IV antibiotics per infectious disease expertise. Patient will likely need I and D of his left leg in the coming few weeks due to developing abscess. The patient's troponins were not consistent with myocardial infarction. Echocardiogram demonstrated normal LV function. However, the patient will need ischemic evaluation after getting over the course of this acute illness. Continue monitoring on telemetry. Ischemic evaluation may be completed as outpatient. Dictated by: Monet Lopez NP Job#: [id number]
[2017-06-09] MEDS: ENOXAPARIN SOD INJ 40 MG/0.4 ML SYR SC SCH (16:39)
[2017-06-09] MEDS ORDERED: IOPAMIDOL 370 MG/ML 200 ML INFUS..BTL INJ ONE (18:47)
[2017-06-09] MEDS ORDERED: SODIUM CHLORIDE 0.9% 50ML 50 ML ONE (18:47)
--- NOTE | 2017-06-09 19:03 | Diagnostic Imaging Report ---
TECHNIQUE: Computed Tomography imaging of the left lower extremity KNEE was performed with injected contrast. 100 mL of Isovue-370 HISTORY: Pain and swelling COMPARISON: None available. FINDINGS: No fracture. No lytic or blastic lesion. No CT finding of osteomyelitis. Diffuse skin thickening with subcutaneous edema throughout the left lower extremity. More confluent phlegmonous change in the anterior prepatellar region for example axial image 16. No well-defined drainable abscess. Three-vessel runoff is patent. IMPRESSION: Left lower extremity cellulitis/edema. Phlegmonous change within the anterior prepatellar region without well-defined abscess. Signed by: Dr. Dennis Rodriguez M.D. on 06/09/2017 6:59 PM
[2017-06-09] MEDS: ACETAMINOPHEN 325 MG TAB PO PRN (19:40)
--- NOTE | 2017-06-09 20:33 | Consultation ---
DATE OF CONSULTATION: June 09, 2017 CHIEF COMPLAINT: Left leg infection. CLINICAL HISTORY: The patient is a 56-year-old male with a 1-week history of progressive leg swelling, redness and tenderness. Patient states he had no injury or history of trauma or insect bite. In the last few days, he had noted development of blisters. The patient states since hospitalization he no longer had fevers or chills. PAST MEDICAL HISTORY: Positive for hypertension. ALLERGIES: HE HAS NO DRUG ALLERGIES. SOCIAL HABITS: The patient denies smoking or alcohol abuse. REVIEW OF SYSTEMS: No chest pain or shortness of breath. PHYSICAL EXAMINATION VITALS: The patient is afebrile. Vital signs are stable. GENERAL: The patient is awake, alert, in no apparent distress. HEENT: Sclerae are anicteric. NECK: Supple. LUNGS: Clear. HEART: Regular rate and rhythm. ABDOMEN: Soft, nontender. EXTREMITIES: Very edematous and erythematous left lower extremity from the ankle to the knee with blister formations on the anterior aspect of the lower extremity on the left side. Pedal pulses strong and palpable. LABS: White cell count is 18,000. Hemoglobin of 14. Creatinine is 0.8. ASSESSMENT: Left lower leg cellulitis. PLAN: CT of the lower extremity to rule out fasciitis. Thank you for this consultation. Job#: [id number]
[2017-06-09] MEDS: VANCOMYCIN HCL 1.5 GM in SODIUM CHLORIDE 0.9% 250ML 300 ML IV SCH (21:11)
[2017-06-10 01:39] VITALS: BP 136/86
[2017-06-10] MEDS: CEFTRIAXONE SOD 1 GM VIAL IV SCH ×2 (02:52→14:45)
[2017-06-10 06:29] VITALS: BP 145/96
[2017-06-10] MEDS: CLINDAMYCIN 600MG/D5W 50ML 50 ML IV SCH ×3 (06:50→23:21)
[2017-06-10 07:48] LABS: BASOPHILS # (AUTO) 0.2 (0.0-0.1); BASOPHILS % 1.1 % (0.0-1.0); EOSINOPHILS # (AUTO) 0.3 (0.0-0.4); EOSINOPHILS % 1.5 % (0.0-6.0); HEMATOCRIT 40.9 % (38.2-49.6); HEMOGLOBIN 13.6 g/dL (14.0-18.0); LYMPHOCYTES # (AUTO) 1.9 (1.0-3.2); MEAN CORPUSCULAR HEMOGLOBIN 27.6 pg (28-32); MEAN CORPUSCULAR HGB CONC 33.3 g/dL (31-35); MEAN CORPUSCULAR VOLUME 83.1 fL (81-99); MONOCYTES # (AUTO) 1.2 (0.2-0.8); MONOCYTES % 6.7 % (4.4-11.3); NEUTROPHILS % 74.7 % (38.7-80.0); PLATELET COUNT 467 x10e3/uL (140-360); RED BLOOD COUNT 4.92 x10e6/uL (4.3-5.7); RED CELL DISTRIBUTION WIDTH 14.4 % (11.7-14.4)
[2017-06-10 08:00] VITALS: BP 145/96
[2017-06-10] MEDS: SENNA-S TABLET PO SCH ×2 (08:40→17:00)
[2017-06-10] MEDS: ASPIRIN 81 MG ENTERIC COATED PO SCH (08:40)
[2017-06-10] MEDS: LACTOBACILLUS ACIDOPHILUS CAPSULE PO SCH ×3 (08:40→20:30)
[2017-06-10] MEDS: VANCOMYCIN HCL 1.5 GM in SODIUM CHLORIDE 0.9% 250ML 300 ML IV SCH ×2 (09:00→20:30)
[2017-06-10 10:58] LABS: BAND NEUTROPHILS % (MANUAL) 4 %; EOSINOPHILS % (MANUAL) 3 % (0-7); LYMPHOCYTES % (MANUAL) 8 % (19-48); MONOCYTES % (MANUAL) 7 % (3.4-9.0); NEUTROPHILS % (MANUAL) 78 % (40-74)
[2017-06-10 10:59] LABS: PLATELET ESTIMATE SLIGHTLY INCREASED; PLATELET MORPHOLOGY COMMENT FEW LARGE; RBC MORPHOLOGY COMMENT NORMAL
[2017-06-10 12:00] VITALS: BP 153/90
[2017-06-10 16:00] VITALS: BP 147/87
[2017-06-10] MEDS: ENOXAPARIN SOD INJ 40 MG/0.4 ML SYR SC SCH (17:00)
[2017-06-10 20:32] VITALS: BP 120/69
[2017-06-11 00:59] VITALS: BP 121/87
[2017-06-11] MEDS: CEFTRIAXONE SOD 1 GM VIAL IV SCH ×2 (02:14→13:44)
[2017-06-11] MEDS: CLINDAMYCIN 600MG/D5W 50ML 50 ML IV SCH ×2 (05:31→13:43)
[2017-06-11 06:12] VITALS: BP 133/84
[2017-06-11 06:30] LABS: BASOPHILS # (AUTO) 0.1 (0.0-0.1); BASOPHILS % 0.9 % (0.0-1.0); EOSINOPHILS # (AUTO) 0.3 (0.0-0.4); EOSINOPHILS % 2.1 % (0.0-6.0); HEMOGLOBIN 13.9 g/dL (14.0-18.0); LYMPHOCYTES # (AUTO) 2.1 (1.0-3.2); LYMPHOCYTES % 13.1 % (18.0-39.1); MEAN CORPUSCULAR HEMOGLOBIN 28.1 pg (28-32); MEAN CORPUSCULAR HGB CONC 33.1 g/dL (31-35); MONOCYTES # (AUTO) 1.3 (0.2-0.8); MONOCYTES % 7.9 % (4.4-11.3); NEUTROPHILS # (AUTO) 11.5 (2.1-6.9); NEUTROPHILS % 71.8 % (38.7-80.0); PLATELET COUNT 456 x10e3/uL (140-360); RED BLOOD COUNT 4.94 x10e6/uL (4.3-5.7); RED CELL DISTRIBUTION WIDTH 14.5 % (11.7-14.4)
[2017-06-11 06:51] LABS: ANION GAP 11.8 mmol/L (8-16); BLOOD UREA NITROGEN 13 mg/dL (7-26); BUN/CREATININE RATIO 13 (6-25); CALCIUM 8.7 mg/dL (8.4-10.2); CARBON DIOXIDE 24 mmol/L (22-29); CHLORIDE 103 mmol/L (98-107); CREATININE, SERUM 1.02 mg/dL (0.72-1.25); EST GLOMERULAR FILTRATION RATE > 60 ML/MIN (60-); GLUCOSE 114 mg/dL (74-118); POTASSIUM 3.8 mmol/L (3.5-5.1); SODIUM 135 mmol/L (136-145)
[2017-06-11 08:00] VITALS: BP 134/91
[2017-06-11] MEDS: VANCOMYCIN HCL 1.5 GM in SODIUM CHLORIDE 0.9% 250ML 300 ML IV SCH ×2 (08:41→20:47)
[2017-06-11] MEDS: ASPIRIN 81 MG ENTERIC COATED PO SCH (08:41)
[2017-06-11] MEDS: SENNA-S TABLET PO SCH ×2 (08:41→16:47)
[2017-06-11] MEDS: LACTOBACILLUS ACIDOPHILUS CAPSULE PO SCH ×3 (08:41→20:47)
[2017-06-11 12:00] VITALS: BP 137/91
--- NOTE | 2017-06-11 12:26 | Progress Note ---
DATE: June 11, 2017 CARDIOLOGY PROGRESS NOTE SUBJECTIVE: Patient denies chest pain or shortness of breath. He reports his left foot and leg hurt with weightbearing. OBJECTIVE VITAL SIGNS: Temperature 96.7 degrees, pulse 79, respiratory rate 18, blood pressure 133/84, oxygen saturation 97% on room air. GENERAL: Awake, alert, in no acute distress. LUNGS: Clear to auscultation bilaterally. No wheezes or crackles. CARDIOVASCULAR: Normal rate, regular rhythm. No murmur. Normal S1, S2. ABDOMEN: Soft, nontender. EXTREMITIES: Left lower extremity remains swollen but improved. Erythema is for the most part present on the anterior aspect of the left leg with fluid collections forming on the anterior aspect. CARDIAC MEDICATIONS 1. Aspirin 81 mg p.o. daily. 2. Enoxaparin 40 mg subcutaneous daily. LABS: WBC 16, hemoglobin 13.9, hematocrit 42, platelets 456,000. Sodium 135, potassium 3.8, chloride 103, CO2 24, BUN 13, creatinine 1.02. CT OF LOWER EXTREMITIES: Left lower extremity cellulitis/edema. Phlegmonous changes within the anterior prepatellar region without well-defined abscess. Three-vessel runoff is patent. TELEMETRY: Normal sinus rhythm. IMPRESSION 1. Left lower extremity cellulitis with phlegmonous changes. 2. Elevated troponin. 3. Dyspnea on exertion. 4. Hypertension. RECOMMENDATIONS: Continue current cardiac medications. IV antibiotics per infectious disease. The patient's left lower extremity was evaluated by general surgery. Management per surgery. The patient's troponin was not consistent with myocardial infarction. Echocardiogram demonstrated normal LV systolic function. He will need ischemic evaluation once his acute illness resolves. Continue telemetry. Thank you for this consult. We will continue to follow. Job#: [id number]
[2017-06-11 16:00] VITALS: BP 127/78
[2017-06-11] MEDS: ENOXAPARIN SOD INJ 40 MG/0.4 ML SYR SC SCH (16:47)
[2017-06-11 20:29] VITALS: BP 129/92
== END 2017-06-11 21:35 | DRG 871 ==
LOC: ER 11:18 → ERHOLD 15:05 → MED/SURG2 22:26
PROVIDERS: ADMIT Internal Medicine; ATTEND Internal Medicine
PROC: 02HV33Z Insertion of Infusion Device into Superior Vena Cava, Percutaneous Approach (ICD-10-PCS; principal; 2017-06-04)
PROC: B5181ZA Fluoroscopy of Superior Vena Cava using Low Osmolar Contrast, Guidance (ICD-10-PCS; 2017-06-04)
DX: A41.9 Sepsis, unspecified organism (principal); R65.21 Severe sepsis with septic shock; M72.6 Necrotizing fasciitis; L03.116 Cellulitis of left lower limb; R06.00 Dyspnea, unspecified; L40.9 Psoriasis, unspecified; I10 Essential (primary) hypertension; R79.89 Other specified abnormal findings of blood chemistry; E66.9 Obesity, unspecified; Z68.36 Body mass index [BMI] 36.0-36.9, adult; R53.81 Other malaise
CPT/HCPCS: 36415; 36569; 71045; 71260; 73701; 80048; 80053; 80061; 80202; 81001; 82550; 82553; 82948; 83036; 83605; 84484; 85025; 85379; 85610; 85730; 87040; 87086; 93005; 93306; 93971; 96367; 96376; 99284; J0696; J1650; J1885; J2543; J3370; J7030; J7040; J7050; Q9967

== ENCOUNTER 2018-01-28 03:45 | Inpatient (IN) | payer OTHER ==
[~2018-01-28] VITALS: Ht 180.3 cm; Wt 116.2 kg
[~2018-01-28 03:45] MED LIST: LOSARTAN POTASS25 MG PO
[2018-01-28] MEDS ORDERED: SODIUM CHLORIDE 0.9% 1000ML 1,000 ML IV STA ×2 (04:13→04:20)
[2018-01-28] MEDS ORDERED: ACETAMINOPHEN 1000 MG/100 ML IV STA (04:20)
--- NOTE | 2018-01-28 04:51 | Diagnostic Imaging Report ---
EXAMINATION: CHEST 2 VIEWS INDICATION: Fever ^FEVER ^[id number] ^0430 COMPARISON: 06/22/2017 FINDINGS: PA and lateral views TUBES and LINES: None. LUNGS: Lungs are well inflated. Subsegmental atelectasis or scarring in the right midlung. There is no evidence of pneumonia or pulmonary edema. PLEURA: No pleural effusion or pneumothorax. HEART AND MEDIASTINUM: The cardiomediastinal silhouette is unremarkable. BONES AND SOFT TISSUES: No acute osseous lesion. Soft tissues are unremarkable. UPPER ABDOMEN: No free air under the diaphragm. IMPRESSION: No acute thoracic abnormality. Signed by: DR. Cruz Mckeon MD on 01/28/2018 4:48 AM
[2018-01-28 04:59] LABS: BASOPHILS # (AUTO) 0.1 (0.0-0.1); BASOPHILS % 0.3 % (0.0-1.0); EOSINOPHILS % 0.2 % (0.0-6.0); HEMATOCRIT 44.4 % (38.2-49.6); HEMOGLOBIN 15.1 g/dL (14.0-18.0); LYMPHOCYTES # (AUTO) 0.4 (1.0-3.2); LYMPHOCYTES % 2.2 % (18.0-39.1); MEAN CORPUSCULAR HEMOGLOBIN 28.4 pg (28-32); MEAN CORPUSCULAR VOLUME 83.5 fL (81-99); MONOCYTES # (AUTO) 1.2 (0.2-0.8); MONOCYTES % 6.2 % (4.4-11.3); NEUTROPHILS # (AUTO) 17.2 (2.1-6.9); NEUTROPHILS % 90.4 % (38.7-80.0); PLATELET COUNT 265 x10e3/uL (140-360); RED BLOOD COUNT 5.32 x10e6/uL (4.3-5.7); RED CELL DISTRIBUTION WIDTH 13.9 % (11.7-14.4)
[2018-01-28 05:09] LABS: INR 1.1; PROTHROMBIN TIME 15.2 seconds (11.9-14.5)
[2018-01-28 05:10] LABS: PARTIAL THROMBOPLASTIN TIME 36.3 seconds (23.8-35.5)
[2018-01-28] MEDS ORDERED: VANCOMYCIN 1GM/NS 250 ML 250 ML IV ONE (05:15)
[2018-01-28 05:22] LABS: STREPTOCOCCUS GRP A ANTIGEN NEGATIVE (NEGATIVE)
[2018-01-28 05:29] LABS: ALBUMIN 3.3 g/dL (3.5-5.0); ALBUMIN/GLOBULIN RATIO 0.8 (0.8-2.0); ANION GAP 15.1 mmol/L (8-16); CALCIUM 9.6 mg/dL (8.4-10.2); CREATININE, SERUM 1.43 mg/dL (0.72-1.25); POTASSIUM 3.1 mmol/L (3.5-5.1)
[2018-01-28 05:31] LABS: INFLUENZAE A&B ANTIGEN (RAPID) NEGATIVE (NEGATIVE)
[2018-01-28] MEDS ORDERED: SODIUM CHLORIDE 0.9% 100 ML ONE (05:38)
[2018-01-28 05:39] LABS: CREATINE KINASE MB 0.3 ng/mL (0-5.0)
[2018-01-28] MEDS: SODIUM CHLORIDE 0.9% 1000ML 1,000 ML IV SCH ×3 (05:40→18:25)
[2018-01-28] MEDS ORDERED: POTASSIUM CHLORIDE 20MEQ/15ML UDC PO ONE (05:45)
[2018-01-28] MEDS: CEFEPIME HCL 2 GM VIAL IV SCH ×2 (05:46→18:25)
[2018-01-28 05:51] LABS: CLARITY,URINE SL CLOUDY (CLEAR); KETONES,URINE TRACE (NEGATIVE); LEUKOCYTE ESTERASE ,URINE NEGATIVE (NEGATIVE); NITRITE,URINE NEGATIVE (NEGATIVE); PROTEIN,URINE DIPSTICK 2+ (NEGATIVE)
[2018-01-28 05:52] LABS: BILIRUBIN,URINE 1+ (NEGATIVE); COLOR,URINE AMBER (YELLOW); URINE UROBILINOGEN 1 mg/dL (0.2 - 1)
[2018-01-28 05:57] LABS: AMORPHOUS SEDIMENT,URINE FEW (FEW); BACTERIA,URINE RARE /HPF; EPITHELIAL CELLS,URINE RARE /LPF
[2018-01-28] MEDS ORDERED: ACETAMINOPHEN 1000 MG/100 ML IV PRN (06:30)
[2018-01-28] MEDS: FAMOTIDINE 20 MG/2 ML VIAL IV SCH ×2 (06:30→18:25)
[2018-01-28] MEDS ORDERED: ONDANSETRON HCL INJ 2 MG/ML VIAL IV PRN (06:30)
[2018-01-28 06:31] LABS: AMYLASE 41 U/L (25-125); LIPASE 44 U/L (8-78)
[2018-01-28 08:35] LABS: CHOL/HDL RATIO 4.9 (3.9-4.7)
--- NOTE | 2018-01-28 08:39 | History and Physical ---
PRIMARY CARE PHYSICIAN: Dr. Boss CHIEF COMPLAINT: Chills and rigors. HISTORY OF PRESENT ILLNESS: This is a 57-year-old man with a history of sepsis and lower extremity cellulitis, now developing chills and rigors for the past 3 days with epigastric discomfort. The patient was also confused per his . There is no nausea, vomiting or diarrhea. No cough. He is admitted for further evaluation and management. PAST MEDICAL HISTORY: Cellulitis of the lower extremity, sepsis. PAST SURGICAL HISTORY: None. ALLERGIES: PER ELECTRONIC MEDICAL RECORD. FAMILY/SOCIAL HISTORY: Patient is . Has 4 children. No alcohol, illicits or cigarettes. MEDICATIONS: Per electronic medical record. REVIEW OF SYSTEMS: Unreliable. PHYSICAL EXAMINATION VITAL SIGNS: Reviewed. GENERAL: A tired-appearing man resting in bed. HEENT: Anicteric. CARDIOVASCULAR: Normal S1 and S2. LUNGS: He has moderate breath sounds. ABDOMEN: Soft and nondistended. He has mild epigastric discomfort. He has an umbilical hernia present, which is reducible. EXTREMITIES: No edema. SKIN: Dry. PSYCHIATRIC: Flat affect. NEUROLOGIC: Awake but confused. Moving all extremities. LABS: Reviewed. MEDICATIONS: Reviewed. ASSESSMENT: A 57-year-old man with: 1. Severe sepsis with acute kidney injury. 2. Acute kidney injury. 3. Hypokalemia. 4. Obesity. 5. Hyperglycemia. 6. Hyperbilirubinemia. PLAN 1. Rehydrate. 2. IV antibiotics. 3. Follow up cultures. 4. Screen for diabetes. 5. Use SCDs and Pepcid. 6. Disposition: Continue IV cefepime. Follow up cultures. Other testing. Recheck liver function in the morning. Job#: [id number] [place]
[2018-01-28 15:01] LABS: ANION GAP 10.7 mmol/L (8-16); BLOOD UREA NITROGEN 16 mg/dL (7-26); BUN/CREATININE RATIO 15 (6-25); CALCIUM 8.2 mg/dL (8.4-10.2); CARBON DIOXIDE 22 mmol/L (22-29); CHLORIDE 106 mmol/L (98-107); CREATININE, SERUM 1.05 mg/dL (0.72-1.25); EST GLOMERULAR FILTRATION RATE > 60 ML/MIN (60-); GLUCOSE 134 mg/dL (74-118); POTASSIUM 3.7 mmol/L (3.5-5.1); SODIUM 135 mmol/L (136-145)
[2018-01-28 15:07] LABS: CREATINE KINASE MB 0.4 ng/mL (0-5.0)
[2018-01-28] MEDS ORDERED: SODIUM CHLORIDE 0.9% 250ML 250 ML ONE (18:10)
[2018-01-28 19:00] VITALS: BP 124/74
[2018-01-28 20:50] LABS: CREATINE KINASE MB 0.3 ng/mL (0-5.0)
[2018-01-28 23:00] VITALS: BP 101/61
[2018-01-29] VITALS (9 sets, daily range): BP systolic 111–136; BP diastolic 59–87
[2018-01-29] MEDS: SODIUM CHLORIDE 0.9% 1000ML 1,000 ML IV SCH ×4 (00:01→22:59)
[2018-01-29] MEDS: CEFEPIME HCL 2 GM VIAL IV SCH ×2 (05:33→17:15)
[2018-01-29 05:41] LABS: BASOPHILS % 0.3 % (0.0-1.0); EOSINOPHILS # (AUTO) 0.1 (0.0-0.4); EOSINOPHILS % 1.1 % (0.0-6.0); HEMATOCRIT 43.5 % (38.2-49.6); HEMOGLOBIN 13.9 g/dL (14.0-18.0); LYMPHOCYTES % 8.9 % (18.0-39.1); MEAN CORPUSCULAR HEMOGLOBIN 27.7 pg (28-32); MEAN CORPUSCULAR VOLUME 86.7 fL (81-99); MONOCYTES # (AUTO) 1.3 (0.2-0.8); MONOCYTES % 12.4 % (4.4-11.3); NEUTROPHILS # (AUTO) 8.2 (2.1-6.9); PLATELET COUNT 228 x10e3/uL (140-360); RED BLOOD COUNT 5.02 x10e6/uL (4.3-5.7); RED CELL DISTRIBUTION WIDTH 14.3 % (11.7-14.4)
[2018-01-29 06:09] LABS: ALANINE AMINOTRANSFERASE 41 IU/L (0-55); ALBUMIN 2.6 g/dL (3.5-5.0); ALBUMIN/GLOBULIN RATIO 0.7 (0.8-2.0); ALKALINE PHOSPHATASE 88 IU/L (40-150); ANION GAP 13.4 mmol/L (8-16); BLOOD UREA NITROGEN 11 mg/dL (7-26); BUN/CREATININE RATIO 11 (6-25); CALCIUM 8.7 mg/dL (8.4-10.2); CARBON DIOXIDE 22 mmol/L (22-29); CHLORIDE 105 mmol/L (98-107); CREATININE, SERUM 1.01 mg/dL (0.72-1.25); EST GLOMERULAR FILTRATION RATE > 60 ML/MIN (60-); GLUCOSE 118 mg/dL (74-118); POTASSIUM 3.4 mmol/L (3.5-5.1); SODIUM 137 mmol/L (136-145)
[2018-01-29] MEDS: FAMOTIDINE 20 MG/2 ML VIAL IV SCH ×2 (06:16→19:04)
[2018-01-29] MEDS: TAMSULOSIN HCL 0.4 MG CAP PO SCH (09:20)
[2018-01-29] MEDS ORDERED: ACETAMINOPHEN 325 MG TAB ONE (09:38)
[2018-01-29 12:29] LABS: BILIRUBIN,URINE NEGATIVE (NEGATIVE); CLARITY,URINE SL CLOUDY (CLEAR); COLOR,URINE AMBER (YELLOW); KETONES,URINE 1+ (NEGATIVE); LEUKOCYTE ESTERASE ,URINE NEGATIVE (NEGATIVE); NITRITE,URINE NEGATIVE (NEGATIVE); PROTEIN,URINE DIPSTICK 1+ (NEGATIVE); URINE UROBILINOGEN 0.2 mg/dL (0.2 - 1)
[2018-01-29] MEDS: ACETAMINOPHEN 325 MG TAB PO PRN (15:16)
[2018-01-30] MEDS: ACETAMINOPHEN 325 MG TAB PO PRN ×3 (01:29→16:42)
[2018-01-30 05:20] LABS: BASOPHILS % 0.4 % (0.0-1.0); EOSINOPHILS # (AUTO) 0.2 (0.0-0.4); EOSINOPHILS % 1.6 % (0.0-6.0); HEMATOCRIT 36.3 % (38.2-49.6); LYMPHOCYTES # (AUTO) 1.1 (1.0-3.2); LYMPHOCYTES % 10.5 % (18.0-39.1); MEAN CORPUSCULAR HEMOGLOBIN 27.8 pg (28-32); MEAN CORPUSCULAR HGB CONC 33.1 g/dL (31-35); MONOCYTES # (AUTO) 1.4 (0.2-0.8); MONOCYTES % 14.1 % (4.4-11.3); NEUTROPHILS # (AUTO) 7.3 (2.1-6.9); PLATELET COUNT 184 x10e3/uL (140-360); RED BLOOD COUNT 4.32 x10e6/uL (4.3-5.7); RED CELL DISTRIBUTION WIDTH 14.2 % (11.7-14.4)
[2018-01-30 05:50] LABS: ALANINE AMINOTRANSFERASE 33 IU/L (0-55); ALBUMIN 2.2 g/dL (3.5-5.0); ALBUMIN/GLOBULIN RATIO 0.6 (0.8-2.0); ALKALINE PHOSPHATASE 79 IU/L (40-150); ANION GAP 9.4 mmol/L (8-16); BLOOD UREA NITROGEN 12 mg/dL (7-26); BUN/CREATININE RATIO 13 (6-25); CALCIUM 8.3 mg/dL (8.4-10.2); CARBON DIOXIDE 22 mmol/L (22-29); CHLORIDE 105 mmol/L (98-107); CREATININE, SERUM 0.95 mg/dL (0.72-1.25); EST GLOMERULAR FILTRATION RATE > 60 ML/MIN (60-); GLUCOSE 108 mg/dL (74-118); POTASSIUM 3.4 mmol/L (3.5-5.1); SODIUM 133 mmol/L (136-145)
[2018-01-30 07:13] VITALS: BP 153/88
[2018-01-30] MEDS ORDERED: POTASSIUM CHLORIDE 20 MEQ TAB CR PO ONE ×2 (07:20→09:10)
[2018-01-30 07:25] VITALS: BP 148/89
[2018-01-30 07:30] VITALS: BP 150/91
[2018-01-30] MEDS: CEFEPIME HCL 2 GM VIAL IV SCH (08:48)
[2018-01-30] MEDS: FAMOTIDINE 20 MG/2 ML VIAL IV SCH ×2 (08:48→18:13)
[2018-01-30] MEDS: TAMSULOSIN HCL 0.4 MG CAP PO SCH (08:50)
[2018-01-30] MEDS: MEROPENEM 500MG/ NS 50ML 50 ML IV SCH ×3 (11:40→23:21)
[2018-01-30] MEDS ORDERED: SODIUM CHLORIDE 0.9% 250ML 250 ML ONE (11:44)
--- NOTE | 2018-01-30 13:05 | Consultation ---
DATE OF CONSULTATION: January 30, 2018 INFECTIOUS DISEASE CONSULTATION ATTENDING PHYSICIAN: Dr. Edouard Alford. REASON FOR CONSULTATION: Persistent fever and severe sepsis. Thank you, Dr. Alford, for asking me to see this patient. HISTORY: The patient is a 57-year-old man referred for persistent fever and severe sepsis. He presented to the emergency department on January 28, 2018, with fever, chills and rapid breathing. The patient developed epigastric pain after eating Thanksgiving dinner and went to a freestanding emergency room the next day when the pain did not resolve. He was evaluated and treated with intramuscular injection and discharged home on famotidine orally for gastritis and ciprofloxacin orally because he had "blood in his urine." The epigastric pain resolved with treatment, but the patient continued to feel unwell and later developed weak stream urination, which he attributed to decreased fluid intake. Subsequently he developed fever, chills and rapid breathing. His and grandchildren had similar symptoms prior to onset of his symptoms. Several months ago, the patient was hospitalized for 3 weeks and required PICC for 3 weeks. PAST MEDICAL HISTORY: Hypertension and left lower extremity cellulitis. PAST SURGICAL HISTORY: None. ALLERGIES: NO KNOWN DRUG ALLERGIES. MEDICATIONS: See MAR. The current antibiotic is cefepime 2 g IV piggyback q.12 h. IMMUNIZATION: He has not received influenza vaccine this season. FAMILY HISTORY: Noncontributory. SOCIAL HISTORY: He drinks alcohol occasionally. No tobacco or recreational drug use. REVIEW OF SYSTEMS: As per history of present illness. He denies cough, nausea, vomiting, diarrhea, abdominal pain and dysuria. He has chronic mild low back pain but denies flank pain. PHYSICAL EXAMINATION GENERAL: Acutely ill. VITAL SIGNS: T-max 103.6, pulse 94, respiratory rate 20, blood pressure 150/91, weight 265 pounds. HEENT: Normocephalic. There is no icterus or injection of the conjunctivae. There is no ear or nasal discharge. Moist oral mucosa. No pharyngeal erythema or exudate. NECK: Supple. No meningismus. LUNGS: A few basal rales. HEART: Normal S1 and S2. Regular. ABDOMEN: Protuberant but normal bowel sounds in all quadrants. Soft and nontender. EXTREMITIES: There is no edema, clubbing or cyanosis. SKIN: There is no acute erythema. AIRLINE FLIGHT ATTENDANT: Awake, alert and oriented to person, place and time. Nonfocal. LABORATORY AND DIAGNOSTICS: WBC 10,030 down from 18,990 on admission; Hemoglobin 12, platelet 184, neutrophil 73, lymph 10.5, mono 14.1, eosinophil 1.6 and basophil 0.4. BUN 12, creatinine 0.95. AST 20, ALT 33, alk phos 79, total bilirubin 0.7. Urinalysis is positive for hematuria. January 28, 2018 blood culture is growing gram-negative denia. January 28, 2018 urine culture showed no growth. January 28, 2018 Chest x-ray showed no acute thoracic abnormality. IMPRESSION: Sepsis from probable [id number] bacteremia present on admission. The source is unclear at this time although urinary tract infection cannot be excluded. Also, influenza cannot be excluded. PLAN 1. Await blood isolate identification and sensitivity. Check respiratory virals PCR and renal ultrasound. 2. Change peripheral IV. 3. Change antibiotic to meropenem 500 mg IV piggyback q.6 h. until ESBL-positive gram negative denia is excluded. Patient should be given influenza vaccine prior to discharge. Job#: [id number] ENID MÉNDEZ
[2018-01-30 14:20] VITALS: BP 150/91
--- NOTE | 2018-01-30 15:42 | Diagnostic Imaging Report ---
Retroperitoneal ultrasound Indication: Sepsis, microscopic hematuria Technique: Select images from retroperitoneal ultrasound provided for interpretation: Comparison: No prior studies for comparison. Findings: The right kidney measures 11.3 cm in greatest length. The echotexture is normal. There is a cyst in the lateral interpolar cortex measuring 7 x 8 x 10 mm. There is no collecting system dilatation or evidence of obstruction. No renal calculi evident. No adjacent free fluid or fluid collections. The left kidney measures 13.1 cm in greatest length. The echotexture is normal. There is no evidence for mass. There is no collecting system dilatation or evidence of obstruction. No renal calculi evident. No adjacent free fluid or fluid collections. Bladder is partially distended but otherwise normal. Right ureteral jet is normal. Left ureteral jet is diminutive. Prostate gland: Not visualized. No free fluid in the pelvis. Survey images of the spleen demonstrate rounded contour suggestive of splenomegaly. No focal lesions. No focal abnormalities in the liver. IMPRESSION: 1. Sonographically normal kidneys with a cyst in the right kidney. 2. Diminutive left ureteral jet is nonspecific. 3. Possible splenomegaly. Recommend further characterization with abdominal ultrasound. Signed by: Dr. John Sanchez MD on 01/30/2018 3:39 PM
[2018-01-30 20:00] VITALS: BP 150/91
[2018-01-30 20:18] VITALS: BP 115/71
[2018-01-31] VITALS (8 sets, daily range): BP systolic 113–152; BP diastolic 73–100
[2018-01-31] MEDS: ACETAMINOPHEN 325 MG TAB PO PRN ×2 (02:41→12:33)
[2018-01-31] MEDS: MEROPENEM 500MG/ NS 50ML 50 ML IV SCH ×4 (05:15→22:18)
[2018-01-31 05:18] LABS: BASOPHILS # (AUTO) 0.1 (0.0-0.1); BASOPHILS % 0.6 % (0.0-1.0); EOSINOPHILS # (AUTO) 0.3 (0.0-0.4); EOSINOPHILS % 2.7 % (0.0-6.0); HEMATOCRIT 39.9 % (38.2-49.6); HEMOGLOBIN 13.3 g/dL (14.0-18.0); LYMPHOCYTES # (AUTO) 1.1 (1.0-3.2); LYMPHOCYTES % 10.4 % (18.0-39.1); MEAN CORPUSCULAR HEMOGLOBIN 27.9 pg (28-32); MEAN CORPUSCULAR HGB CONC 33.3 g/dL (31-35); MEAN CORPUSCULAR VOLUME 83.6 fL (81-99); MONOCYTES # (AUTO) 1.7 (0.2-0.8); MONOCYTES % 16.1 % (4.4-11.3); NEUTROPHILS # (AUTO) 7.3 (2.1-6.9); NEUTROPHILS % 69.8 % (38.7-80.0); PLATELET COUNT 180 x10e3/uL (140-360); RED BLOOD COUNT 4.77 x10e6/uL (4.3-5.7); RED CELL DISTRIBUTION WIDTH 14.1 % (11.7-14.4)
[2018-01-31] MEDS: FAMOTIDINE 20 MG/2 ML VIAL IV SCH ×2 (05:38→17:23)
[2018-01-31 06:54] LABS: ALANINE AMINOTRANSFERASE 39 IU/L (0-55); ALBUMIN 2.4 g/dL (3.5-5.0); ALBUMIN/GLOBULIN RATIO 0.6 (0.8-2.0); ALKALINE PHOSPHATASE 91 IU/L (40-150); ANION GAP 10.6 mmol/L (8-16); BLOOD UREA NITROGEN 12 mg/dL (7-26); BUN/CREATININE RATIO 15 (6-25); CALCIUM 8.7 mg/dL (8.4-10.2); CARBON DIOXIDE 23 mmol/L (22-29); CHLORIDE 105 mmol/L (98-107); CREATININE, SERUM 0.82 mg/dL (0.72-1.25); EST GLOMERULAR FILTRATION RATE > 60 ML/MIN (60-); GLUCOSE 109 mg/dL (74-118); POTASSIUM 3.6 mmol/L (3.5-5.1); SODIUM 135 mmol/L (136-145)
[2018-01-31] MEDS: TAMSULOSIN HCL 0.4 MG CAP PO SCH (10:45)
[2018-01-31] MEDS ORDERED: SODIUM CHLORIDE 0.9% 250ML 250 ML ONE (22:06)
[2018-01-31] MEDS: LABETALOL HCL 100 MG TAB PO SCH (22:18)
[2018-02-01] VITALS: BP 121/67
[2018-02-01 04:00] VITALS: BP 134/80
[2018-02-01 04:57] LABS: BASOPHILS # (AUTO) 0.1 (0.0-0.1); BASOPHILS % 0.7 % (0.0-1.0); EOSINOPHILS # (AUTO) 0.5 (0.0-0.4); EOSINOPHILS % 4.4 % (0.0-6.0); HEMATOCRIT 40.4 % (38.2-49.6); HEMOGLOBIN 13.5 g/dL (14.0-18.0); LYMPHOCYTES # (AUTO) 1.7 (1.0-3.2); LYMPHOCYTES % 16.5 % (18.0-39.1); MEAN CORPUSCULAR HEMOGLOBIN 27.6 pg (28-32); MEAN CORPUSCULAR HGB CONC 33.4 g/dL (31-35); MEAN CORPUSCULAR VOLUME 82.6 fL (81-99); MONOCYTES # (AUTO) 1.6 (0.2-0.8); MONOCYTES % 15.3 % (4.4-11.3); NEUTROPHILS # (AUTO) 6.5 (2.1-6.9); NEUTROPHILS % 62.6 % (38.7-80.0); PLATELET COUNT 267 x10e3/uL (140-360); RED BLOOD COUNT 4.89 x10e6/uL (4.3-5.7)
[2018-02-01 05:22] LABS: ALANINE AMINOTRANSFERASE 53 IU/L (0-55); ALBUMIN 2.6 g/dL (3.5-5.0); ALBUMIN/GLOBULIN RATIO 0.7 (0.8-2.0); ALKALINE PHOSPHATASE 98 IU/L (40-150); ANION GAP 13.9 mmol/L (8-16); BLOOD UREA NITROGEN 14 mg/dL (7-26); BUN/CREATININE RATIO 16 (6-25); CALCIUM 8.9 mg/dL (8.4-10.2); CARBON DIOXIDE 21 mmol/L (22-29); CHLORIDE 105 mmol/L (98-107); CREATININE, SERUM 0.89 mg/dL (0.72-1.25); EST GLOMERULAR FILTRATION RATE > 60 ML/MIN (60-); GLUCOSE 114 mg/dL (74-118); POTASSIUM 3.9 mmol/L (3.5-5.1); SODIUM 136 mmol/L (136-145)
[2018-02-01] MEDS: MEROPENEM 500MG/ NS 50ML 50 ML IV SCH (06:07)
[2018-02-01] MEDS: LABETALOL HCL 100 MG TAB PO SCH ×2 (06:07→15:05)
[2018-02-01] MEDS: FAMOTIDINE 20 MG/2 ML VIAL IV SCH (06:07)
[2018-02-01] MEDS: TAMSULOSIN HCL 0.4 MG CAP PO SCH (07:32)
[2018-02-01 08:05] VITALS: BP 150/79
[2018-02-01 09:13] VITALS: BP 150/79
[2018-02-01] MEDS ORDERED: LEVAQUIN500 MG PO (10:40)
[2018-02-01 12:36] VITALS: BP 124/83
[2018-02-01 15:53] VITALS: BP 139/88
[2018-02-02] MEDS ORDERED: LEVOFLOXACIN 500MG/D5W 100ML 100 ML IV SCH (09:00)
== END 2018-02-01 17:19 | disposition home or self-care (01) | DRG 871 ==
LOC: ER 03:45 → ERHOLD 06:43 → IMCU 01-29 13:50 → MED/SURG2 01-31 17:51
PROVIDERS: ADMIT Internal Medicine; ATTEND Internal Medicine
DX: A41.50 Gram-negative sepsis, unspecified (principal); R65.21 Severe sepsis with septic shock; N17.9 Acute kidney failure, unspecified; E87.6 Hypokalemia; E80.6 Other disorders of bilirubin metabolism; E11.65 Type 2 diabetes mellitus with hyperglycemia; Z79.4 Long term (current) use of insulin; B96.1 Klebsiella pneumoniae [K. pneumoniae] as the cause of diseases classified elsewhere
CPT/HCPCS: 36415; 71046; 76770; 80048; 80053; 80061; 81001; 82150; 82248; 82550; 82553; 83036; 83518; 83605; 83690; 83735; 84484; 85025; 85610; 85730; 87040; 87070; 87071; 87086; 87186; 87205; 87299; 87400; 93005; 96361; 99284; J0692; J3370; J7030; J7050

== ENCOUNTER → 2022-03-22 | Day surgery (SDC) | payer OTHER ==
[2022-03-17 13:31] LABS: BASOPHILS # (AUTO) 0.1 (0.0-0.1); BASOPHILS % 0.6 % (0.0-1.0); EOSINOPHILS # (AUTO) 0.3 (0.0-0.4); EOSINOPHILS % 2.1 % (0.0-6.0); HEMATOCRIT 49.7 % (38.2-49.6); HEMOGLOBIN 15.1 g/dL (14.0-18.0); LYMPHOCYTES % 23.1 % (18.0-39.1); MEAN CORPUSCULAR HEMOGLOBIN 27.9 pg (28-32); MEAN CORPUSCULAR HGB CONC 30.4 g/dL (31-35); MEAN CORPUSCULAR VOLUME 91.7 fL (81-99); MONOCYTES % 7.6 % (4.4-11.3); NEUTROPHILS # (AUTO) 8.6 (2.1-6.9); NEUTROPHILS % 66.4 % (38.7-80.0); PLATELET COUNT 401 x10e3/uL (140-360); RED BLOOD COUNT 5.42 x10e6/uL (4.3-5.7); RED CELL DISTRIBUTION WIDTH 14.3 % (11.7-14.4)
[2022-03-17 13:43] LABS: ANION GAP 15.3 mmol/L (8-16); CALCIUM 9.2 mg/dL (8.4-10.2); CREATININE, SERUM 1.23 mg/dL (0.72-1.25); POTASSIUM 4.3 mmol/L (3.5-5.1)
[~2022-03-22] MED LIST changes: +AMLODIPINE BESYL5 MG PO; +AVODART0.5 MG PO; +BUPIVACAINE 0.5%/EPI 30 ML SDV INJ ONE; +DEXAMETHASONE SOD PHOS INJ 4 MG/ML SDV ONE; +FENTANYL CITRATE/PF 100MCG/2 ML INJ ONE; +FLOMAX0.4 MG PO; +GLYCOPYRROLATE INJ 0.2 MG/ML VIAL ONE; +HYDROCODONE/APAP 7.5MG-325MG 1 EA TAB ONE; +KETOROLAC TROMETHAMINE 30 MG/ML VIAL ONE; +LEVAQUIN500 MG PO; +LIDOCAINE HCL 2% LOCAL INJ 5 ML SDV VIAL INJ ONE; +MIDAZOLAM HCL 2 MG/2 ML VIAL ONE; +Morphine 10mg syringe 10 MG/ML INJ ONE; +NEOSTIGMINE 1 MG/ML 10ML VIAL ONE; +ONDANSETRON HCL INJ 2MG/ML 2ML 2 MG/ML VIAL ONE; +POVIDONE IODINE 0.05% 0.05 % ML PO ONE; +PROPOFOL IV EMULSION 10 MG/ML 20 ML VIAL ONE; +PROPOFOL IV EMULSION 10 MG/ML 50 ML VIAL IV ONE; +ROCURONIUM BROMIDE 10 MG/ML 5ML VIAL IV ONE; +SEVOFLURANE INHAL SOLN 250 ML PEN BTL ONE; +ZINC CHELATED50 M2 PO
[2022-03-22 11:50] VITALS: BP 123/80
== END | disposition home or self-care (01) ==
LOC: OR 06:24
PROVIDERS: ATTEND Surgery
DX: K43.6 Other and unspecified ventral hernia with obstruction, without gangrene (principal); I10 Essential (primary) hypertension; N40.0 Benign prostatic hyperplasia without lower urinary tract symptoms; E78.5 Hyperlipidemia, unspecified; K76.0 Fatty (change of) liver, not elsewhere classified; Z01.810 Encounter for preprocedural cardiovascular examination; Z01.812 Encounter for preprocedural laboratory examination; Z01.818 Encounter for other preprocedural examination; Z79.899 Other long term (current) drug therapy
CPT/HCPCS: 36415; 49594; 71046; 80048; 85025; 88302; 93005; C1781; J0690; J1100; J1885; J2001; J2250; J2270; J2405; J2704 ×2; J2710; J3010